=== PATIENT | female | born 1995 | race Caucasian/White ===

== ENCOUNTER → 2023-02-21 09:52 | Outpatient (BNVA) | payer BC, SELFPAY | PROVIDERS: PCP Nurse Practitioner Family; Visit Provider Nurse Practitioner Family | DX: E66.9 Obesity, unspecified (principal); F32.4 Major depressive disorder, single episode, in partial remission; F41.9 Anxiety disorder, unspecified; K21.9 Gastro-esophageal reflux disease without esophagitis | CPT/HCPCS: 80053; 80061; 84443 ==

== ENCOUNTER → 2023-08-23 09:29 | Outpatient (BNVA) | payer BC, SELFPAY | PROVIDERS: PCP Nurse Practitioner Family; Visit Provider Nurse Practitioner Family | DX: F41.9 Anxiety disorder, unspecified (principal); E66.9 Obesity, unspecified; K21.9 Gastro-esophageal reflux disease without esophagitis; J30.2 Other seasonal allergic rhinitis; K59.09 Other constipation; G47.00 Insomnia, unspecified; F32.4 Major depressive disorder, single episode, in partial remission; K52.9 Noninfective gastroenteritis and colitis, unspecified | CPT/HCPCS: 80053 ==

== ENCOUNTER → 2024-03-14 10:09 | Outpatient (BNVA) | payer BC, SELFPAY | PROVIDERS: PCP Nurse Practitioner Family; Visit Provider Nurse Practitioner Family | DX: F41.9 Anxiety disorder, unspecified (principal); F32.4 Major depressive disorder, single episode, in partial remission; G47.00 Insomnia, unspecified; J30.2 Other seasonal allergic rhinitis; K21.9 Gastro-esophageal reflux disease without esophagitis; R41.840 Attention and concentration deficit; F33.41 Major depressive disorder, recurrent, in partial remission | CPT/HCPCS: 80053; 84443; 85025 ==